=== PATIENT | male | born 1965 | race Caucasian/White ===

== ENCOUNTER 2017-12-09 12:24 | Emergency (ER) | payer BC ==
[~2017-12-09] VITALS: Ht 177.8 cm; Wt 99.8 kg
[2017-12-09] MEDS ORDERED: ZYRTEC10 M3 PO (16:05)
[2017-12-09] MEDS ORDERED: LEVAQUIN750 MG PO (16:05)
[2017-12-09] MEDS ORDERED: TUSSI PRES-B L120 M1 PO (16:05)
[2017-12-09] MEDS ORDERED: MEDROLPACK PO (16:05)
== END 2017-12-09 16:12 | disposition home or self-care (01) ==
LOC: ER 12:24
DX: B34.9 Viral infection, unspecified (principal)